=== PATIENT | female | born 1955 | race Caucasian/White ===

== ENCOUNTER 2025-06-16 09:16 | Outpatient (REF) | payer MEDICARE, SELFPAY ==
[2025-06-16 13:24] LABS: MANUAL DIFF FLAG NO
[2025-06-16 13:29] LABS: Hematocrit 41.3 % (37.0-47.0); Hemoglobin 13.3 g/dl (12.0-16.0); Imm Gran Abs Auto 0.03 X10*3/uL (0.00-0.03); Imm Gran Pct Auto 0.4 % (0.0-0.4); Lymphocytes Absolute Auto 1.6 X10*3/uL (1.2-4.9); Mean Corpuscular HGB Conc 32.2 g/dl (31.0-35.0); Mean Corpuscular Hemoglobin 28.8 pg (27.0-33.0); Mean Corpuscular Volume 89.4 fL (80.0-98.0); NRBC Abs Auto 0.000 X10*3/uL (0.0-0.012); NRBC Pct Auto 0.0 /100WBC (0.0-0.2); Platelet Count 278 X10*3/uL (160-400); Red Blood Count 4.62 X10*6/uL (4.20-5.50); White Blood Count 6.7 X10*3/uL (4.8-10.8)
--- OUTSIDE RECORDS SUMMARY | 2025-06-16 13:51 | XMS_ITS | Encounter Summary ---
Author Organization [facility] Address [address] [place] [id number] Phone Care Team Providers Care Genetic Counselor Name Role Phone Radha Carbone MD Primary Care Provider + Encounter Details Date Type Department Care Team (Late st Contact Info) Description 04/08/2020 Ancillary Orders [facility] [address] [place] [address] DanicaAdrian garcia MD [address] [place] [address] [email or web address] Pain in joints Social History Tobacco Use Types Packs/Day Years Used Date Smoking Tobacco: Every Day Cigarettes 0.5 37 Smokeless Tobacco: Never Alcohol Use Standard Drinks/Week Comments Not Currently 0 (1 standard drink = 0.6 oz pur e alcohol) Comments Unknown Sex and Gender Information Value Date Recorded Sex Assigned at Not on file Legal Sex Female 10:27 AM EDT Gender Identity Not on file Sexual Orientation Not on file documented as of this encounter Plan of Treatment Not on file documented as of this encounter Results * XR HAND 3 OR MORE VIEWS (BILATERAL) (04/08/2020 4:43 PM EDT) Anatomical Region Laterality Modality Hand Left Computed Radiogr aphy 04/08/2020 4:46 PM EDT Impressions 04/08/2020 4:49 PM EDT Mild osteoarthritic changes in the thumb, second and third fingers. No signs of inflammatory or crystalline arthropathy. POS [id number] Narrative 04/08/2020 4:49 PM EDT Bilateral hands and wrists, 4 views of both. No comparison Mild, generalized osteopenia, not specifically periarticular. No erosions, soft tissue calcifications or subluxation. Minimal joint space narrowing and marginal spurring in the first MCP and second DIP joints bilaterally. Negligible similar changes in the third right DIP joint. Procedure Note Travis Frazier MD - 04/08/2020 Bilateral hands and wrists, 4 views of both. No comparison Mild, generalized osteopenia, not specifically periarticular. No erosions, soft tissue calcifications or subluxation. Minimal joint space narrowing and marginal spurring in the first MCP andsecond DIP joints bilaterally. Negligible similar changes in the thirdright DIP joint. IMPRESSION: Mild osteoarthritic changes in the thumb, second and third fingers. Nosigns of inflammatory or crystalline arthropathy. POS [id number] us Adrian Mishra MD IMG XR UPPER EXTR EMITY Final Result documented in this encounter Visit Diagnoses Diagnosis Pain in joints Pain in joint, multiple sites Pain in joints Pain in joint, multiple sites documented in this encounter Care Teams Genetic Counselor Relationship Specialty Start Date End Date Radha Carbone MD PCP - General Internal Medicine 03/22/20 documented as of this encounter Additional Source Comments The information contained in this document represents components of the legal health record. It is not the complete legal health record.[facility]
--- OUTSIDE RECORDS SUMMARY | 2025-06-16 13:51 | XMS_ITS | Clinical Summary ---
Author Organization [facility] Address [address] [place] [id number] Phone Care Team Providers Care Instructional Resource Teacher Name Role Phone Radha Carbone MD Primary Care Provider + Allergies No known active allergies Medications acetaminophen (TYLENOL) 500 MG tablet Take 500 mg by mouth every 6 (six) hours as needed. 2 tabs tid prn Active atorvastatin (LIPITOR) 80 MG tablet Take 80 mg by mouth daily. Active cholecalciferol (VITAMIN D3) 400 unit tablet Take 1,000 Units by mouth daily. Active DULoxetine (CYMBALTA) 20 MG capsule Take 20 mg by mouth daily. Active levothyroxine (SYNTHROID, LEVOTHROID) 200 MCG tablet Take 200 mcg by mouth every morning. Active lisinopril (PRINIVIL,ZESTRI L) 10 MG tablet Take 10 mg by mouth daily. Active metFORMIN (GLUCOPHAGE) 500 MG tablet Take 500 mg by mouth 2 (two) times a day with meals. Active omeprazole (PRILOSEC) 20 MG capsule Take 20 mg by mouth daily. Active albuterol 90 mcg/actuation inhaler Inhale 2 puffs into the lungs every 6 (six) hours as needed. Active cyanocobalamin, vitamin B-12, 250 MCG tablet Take 250 mcg by mouth daily. Active Active Problems No known active problems Family History Medical History Relation Comments Arthritis Mother Relation Status Comments Mother Social History Tobacco Use Types Packs/Day Years Used Date Smoking Tobacco: Every Day Cigarettes 0.5 37 Smokeless Tobacco: Never Alcohol Use Standard Drinks/Week Comments Not Currently 0 (1 standard drink = 0.6 oz pur e alcohol) Education Answer Date Recorded Are you interested in more education? Not on armando e 10/26/2022 Are you concerned about learning? Not on file 10/26/2022 No 10/26/2022 No 10/26/2022 Digital Access Answer Date Recorded No 11/24/2022 No 11/24/2022 No 11/24/2022 Reliable internet access at home? Not on file 11/24/2022 Device with a working camera? Not on file Comments Unknown Sex and Gender Information Value Date Recorded Sex Assigned at Not on file Legal Sex Female 10:27 AM EDT Gender Identity Not on file Sexual Orientation Not on file Last Filed Vital Signs Vital Sign Reading Time Taken Comments Blood Pressure 102/60 04/08/2020 3:52 PM EDT Pulse - - Temperature - - Respiratory Rate - - Oxygen Saturation - - Inhaled Oxygen Concentration - - Weight 92.5 kg (204 lb) 04/08/2020 3:52 PM EDT Height 175.3 cm (5' 9 ) 04/08/2020 3:52 PM EDT Body Mass Index 30.13 04/08/2020 3:52 PM EDT Plan of Treatment Health Maintenance Due Date Last Done Comments Adult Td,Tdap Booster 1957 LIPID PANEL 1957 DEPRESSION SCREENING 1969 SMOKING Hx and SMOKELESS TOB ACCO SCREENING 1970 HEPATITIS C SCREENING 1975 PNEUMOCOCCAL VACCINES (50+ y ears) (1 of 2 - PCV) 1976 MAMMOGRAM 1997 COLOGUARD 2002 COLONOSCOPY 2002 COLORECTAL CANCER SCREENING 2002 FIT TEST 2002 FOBT 2002 SIGMOIDOSCOPY 2002 VIRTUAL COLONOSCOPY 2002 ZOSTER VACCINES (1 of 2) 2007 CREATININE LEVEL 04/13/2021 04/13/2020 POTASSIUM LEVEL 04/13/2021 04/13/2020 TSH LEVEL 04/13/2021 04/13/2020 OSTEOPOROSIS SCREENING INITI AL (ONE-TIME) 2022 INFLUENZA VACCINE (#1) 2025 05/01/2016 COVID-19 VACCINE ( - 2024-2 6 season) 2025 RSV VACCINE (1 - 1-dose 75+ series) 2032 HEPATITIS A VACCINES Aged Out No long er eligible based on patient's age to complete this topic HIB VACCINES Aged Out No longer eligi ble based on patient's age to complete this topic MENINGOCOCCAL VACCINES (ACWY) Aged Out No longer eligible based on patient's age to complete this topic MENINGOCOCCAL VACCINES (B) Aged Out N o longer eligible based on patient's age to complete this topic Medical Devices Not on file Procedures Procedure Name Priority Date/Time Associated Diagnosis Comments THYROID STIMULATING HORMONE (TSH) Routine 04/13/2020 1:25 PM EDT Pain in joints COMPREHENSIVE METABOLIC PANEL (CMP) Routine 04/13/2020 1:25 PM EDT Pain in joints from Last 3 Months or Most Recently Relevant to Health Maintenance Results * (ABNORMAL) Comprehensive metabolic panel (04/13/2020 1:25 PM EDT) SODIUM 140 133 - 146 mmol/L [facility] POTASSIUM 3.9 3.3 - 5.1 mmol/L [facility] CHLORIDE 104 96 - 108 mmol/L [facility] CO2 24 21 - 35 mmol/L [facility] BUN 11 6 - 19 mg/dL [facility] CREATININE 0.50 0.5 - 1.5 mg/dL [facility] GLUCOSE 116(H) 70 - 99 mg/dL [facility] ALBUMIN 4.2 3.9 - 4.8 g/dL [facility] TOTAL PROTEIN 7.0 6.5 - 8.0 g/dL [facility] CALCIUM 9.3 8.4 - 10.3 mg/dL [facility] ALKALINE PHOSPHATASE 89 39 - 117 U/L [facility] TOTAL BILIRUBIN 0.2 0.0 - 1.2 mg/dL [facility] AST 22 0 - 37 U/L [facility] ALT 18 0 - 40 U/L [facility] GLOBULIN 2.8 1 - 4.8 g/dL [facility] EGFR 104 >59 mL/min/1.7 3m2 [facility] Comment:Estimated glomerular filtration rate calculated using the CKD-EPI equation. ANION GAP 16 10 - 20 mmol/L [facility] Blood 04/13/2020 1:25 PM EDT 04/13/2020 1:32 PM EDT Adrian Mishra MD LAB BLOOD BKR ORD ERABLES Final Result [address] [id number] * TSH (04/13/2020 1:25 PM EDT) TSH 1.91 0.27 - 4.20 uIU/mL [facility] Blood 04/13/2020 1:25 PM EDT 04/13/2020 1:32 PM EDT Adrian Mishra MD LAB BLOOD BKR ORD ERABLES Final Result Performing Organization Address City/[facility]/ZIP Co de Phone Number [address] [phone] from Last 3 Months or Most Recently Relevant to Health [place] [address] [facility] [place] [id number] [facility] [id number] [facility] Care Teams Instructional Resource Teacher Relationship Specialty Start Date End Date Radha Carbone MD PCP - General Internal Medicine 03/22/20 Additional Source Comments The information contained in this document represents components of the legal health record. It is not the complete legal health record.[facility]
--- OUTSIDE RECORDS SUMMARY | 2025-06-16 13:51 | XMS_ITS | Clinical Summary ---
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 Name Role Phone Radha Carbone MD Primary Care Provider [phone] Social History Tobacco Use Types Packs/Day Years Used Date Smoking Tobacco: Never Assessed Comments Unknown Sex and Gender Information Value Date Recorded Sex Assigned at Not on file Legal Sex Female 5:31 AM EST Gender Identity Not on file Sexual Orientation Not on file Plan of Treatment Health Maintenance Due Date Last Done Comments Breast Cancer Screening 1955 Zoster Vaccines (1 of 2) 2007 Pneumococcal Vaccine: 50+ Years (2 of 2 - PCV) 09/13/2016 09/14/2015 Depression Screening 07/01/2024 COVID-19 Vaccine (1 - 2024-2 6 season) 2025 Influenza Vaccine (#1) 2025 6, 05/18/2015 DTaP,Tdap,and Td Vaccines (2 - Td or Tdap) 09/13/2025 09/14/2015 RSV Immunization Adult Patients (1 - 1-dose 75+ series) 2032 HIB Vaccines Aged Out No longer eligi ble based on patient's age to complete this topic HPV Vaccines Aged Out No longer eligi ble based on patient's age to complete this topic Hepatitis A Vaccines Aged Out No long er eligible based on patient's age to complete this topic Hepatitis B Vaccines Aged Out No long er eligible based on patient's age to complete this topic IPV Vaccines Aged Out No longer eligi ble based on patient's age to complete this topic MMR Vaccines Aged Out No longer eligi ble based on patient's age to complete this topic Meningococcal ACWY Vaccine Aged Out N o longer eligible based on patient's age to complete this topic Meningococcal B Vaccine Aged Out No l onger eligible based on patient's age to complete this topic RSV Immunization Patients Under 20 months Aged Out No longer eligible b ased on patient's age to complete this topic Varicella Vaccines Aged Out No longer eligible based on patient's age to complete this topic Care Teams Test Borer Helper Relationship Specialty Start Date End Date Radha Carbone MD [address] [place] [address] PCP - General Internal Medicine 09/24/18
[2025-06-16 13:54] LABS: Alanine Aminotransferase 23 U/L (0-31); Albumin Level 4.6 g/dL (3.5-5.0); Alkaline Phosphatase 78 U/L (39-117); Anion Gap 12 (12-20); Aspartate Amino Transferase 26 U/L (5-31); Blood Urea Nitrogen 12 mg/dL (9-16); Calcium 8.9 mg/dL (8.4-10.2); Carbon Dioxide 26 mmol/L (22-29); Chloride 106 mmol/L (96-108); Cholesterol 209 mg/dL (<200); Estimated Glomerular Filt Rate > 60; HDL Cholesterol 53 mg/dL (>40); Iron 77 mcg/dL (30-160); Magnesium 1.9 mg/dL (1.6-2.6); Percent Iron Saturation 24 % (15-50); Potassium 4.0 mmol/L (3.3-5.1); Sodium 140 mmol/L (135-145); Total Iron Binding Capacity 316 mcg/dL (228-428); Total Protein 7.2 g/dL (6.5-8.0); Triglycerides 101 mg/dL (<150); Unsaturated Iron Binding 239 ug/dL
[2025-06-16 14:13] LABS: Ferritin 36 ng/mL (10-250)
[2025-06-16 14:18] LABS: Folate 19.8 ng/mL (> or = 4.0); Vitamin B12 631 pg/mL (200-900)
[2025-06-18 13:13] LABS: SM/Ribonucleoprotein Ab <1.0 NEG AI (<1.0 NEG); Smith Protein <1.0 NEG AI (<1.0 NEG)
[2025-06-22 11:49] LABS: Anti Nuclear Antibody Screen NEGATIVE (NEGATIVE)
== END 2025-06-16 09:17 | disposition home or self-care (01) ==
LOC: HO.10HDL 09:16
PROVIDERS: PCP Internal Medicine; Visit Provider Internal Medicine
DX: E11.9 Type 2 diabetes mellitus without complications (principal); E03.9 Hypothyroidism, unspecified; R80.9 Proteinuria, unspecified; M79.7 Fibromyalgia; R20.9 Unspecified disturbances of skin sensation; E78.2 Mixed hyperlipidemia
CPT/HCPCS: 36415; 80053; 80061; 82306; 82607; 82728; 82746; 83036; 83540; 83735; 84443; 85025; 85652; 86038; 86140; 86200; 86225; 86235; 86431; 96127; 99212

== ENCOUNTER 2025-06-16 09:16 | Outpatient (AMB) | payer MEDICARE, MEDICAID, SELFPAY ==
--- NOTE | 2025-06-16 09:27 | MHC.PC.OV ---
Vital Signs 06/16/25 09:28 Height 5 ft 6 in Weight 193 lb 8 oz BMI 31.2 BP 108/74 Respiration 14 Pulse 72 Pulse Source Pulse Oximeter Temp 97.7 F Temp Source Temporal Artery Scan Pulse Oximetry (%) 99 Oxygen Delivery Method Room Air Intake Visit Reasons: ANNE/ See Comments Firebrick Layer Helper Required: Yes Firebrick Layer Helper Language: Bengali Allergies NSAIDS (Non-Steroidal Anti-Inflamma Adverse Reaction (Intermediate, Verified 06/16/25 09:27) proteinuria Medication List - Last Reconciled 06/16/25 by Radha Carbone MD atorvastatin 80 mg PO DAILY cholecalciferol (vitamin D3) 50 mcg PO DAILY cyanocobalamin (vitamin B-12) 1,000 mcg PO 2XW dextroamphetamine-amphetamine 5 mg 1 tab PO BID PRN dulaglutide (Trulicity) 3 mg subcut QWEEK duloxetine 120 mg PO QAM ferrous sulfate 325 mg PO BID folic acid 1 mg PO DAILY levothyroxine 200 mcg PO DAILY lisinopril 2.5 mg PO DAILY magnesium oxide 200 mg PO DAILY PRN metformin 500 mg PO BID montelukast 10 mg PO DAILY pantoprazole 40 mg PO BID sucralfate 1 g PO BID topiramate 25 mg PO BEDTIME trazodone 200 mg PO BEDTIME zolpidem 5 mg PO BEDTIME PRN HPI HPI Comments History of Present Illness Details The patient is a 70 year old female [facility] and for in office examination for recertification of services. Type 2 Diabetes Mellitus/Obesity: The patient reports that her Trulicity injection is no longer helping with her weight loss. Also taking metformin. She has experienced progressively worsening coldness in her feet, which started in her toes and now affects the entire foot, occurring even in the summer. She wears double socks for warmth and avoids walking barefoot to prevent injury. She follows with nephrology for proteinuria, and her last visit with Dr. Marshall two months ago showed stable kidney function. Bone Health: Patient had bone density scans done in [place] showing some evidence of osteopenia. Will confirm if patient had previous scans done at [facility]. Fibromyalgia: The patient has a history of fibromyalgia, with symptoms that worsen during the winter. She manages her pain with trigger point injections administered by a paint mixer hand, which she finds helpful. She recently underwent a PRP plasma injection for her shoulder one week prior to this visit. Scalp Lesion: The patient has had a lesion on her scalp for about five years, which was initially small. Over time, it has become larger, more irregular, darker, and flaky. Hypothyroidism: The patient is status post thyroidectomy and is on levothyroxine. [facility] Medical History (Updated 06/16/25 @ 17:42 by Radha Carbone MD) Mixed hyperlipidemia Cold feet Depression with anxiety Proteinuria WOLF (obstructive sleep apnea) Hypothyroidism Fibromyalgia Diabetes mellitus type 2, controlled Surgical History (Updated 06/16/25 @ 07:57 by Radha Carbone MD) H/O shoulder surgery History of back surgery H/O thyroidectomy History of sleeve gastrectomy H/O: hysterectomy History of colonoscopy (~02/28/21) Questionnaire PHQ-9 Over the last 2 weeks, how often have you been bothered by any of the following problems? 1. Little interest or pleasure in doing things: more than half the days 2. Feeling down, depressed, or hopeless: more than half the days 3. Trouble falling or staying asleep, or sleeping too much: more than half the days 4. Feeling tired or having little energy: more than half the days 5. Poor appetite or overeating: more than half the days 6. Feeling bad about yourself - or that you are a failure or have let yourself or your family down: several days 7. Trouble concentrating on things, such as reading the newspaper or watching television: more than half the days 8. Moving or speaking so slowly that other people could have noticed. Or the opposite - being so fidgety or restless that you have been moving around a lot more than usual: several days 9. Thoughts that you would be better off or of hurting yourself in some way: not at all Total score: 14 Source: Developed by Drs. Marky Walker, Bushra Peralta, Art Jain and colleagues, with an educational john from [employer]. Review of Systems Narrative Review of Systems - Constitutional: Reports chronically cold feet. Denies fever. - Cardiovascular: Denies chest pain. Reports coldness in her feet. - Respiratory: Denies wheezing. - Gastrointestinal: Reports history of heartburn, managed with medication. Denies current symptoms of severe acid reflux. Skin: Reports a growing scalp lesion that has become darker, irregular, and flaky, and the appearance of a new nearby lesion. - Musculoskeletal: Reports chronic pain from fibromyalgia, which is worse in the winter. - Neurological: per hpi - Psychiatric: Reports anxiety and insomnia. Physical exam (Primary Care) Vital Signs: Last Vital Signs Temp 97.7 F 06/16/25 09:28 Pulse 72 06/16/25 09:28 Resp 14 06/16/25 09:28 BP 108/74 06/16/25 09:28 Pulse Ox 99 06/16/25 09:28 Oxygen Delivery Method Room Air 06/16/25 09:28 BMI result Body Mass Index 31.2 PHQ-9: PHQ-9 Score PHQ-9: Total score 14 06/16/25 09:31 Narrative Physical Exam - Gen: NAD. - HEENT: Bilateral ear canals and tympanic membranes are clear. Oropharynx is non-erythematous. - Neck: Supple, no cervical or supraclavicular lymphadenopathy. Carotid upstrokes are normal bilaterally, without bruits. - Lungs: Clear to auscultation bilaterally, no wheezes. - Cardiovascular: Regular rate and rhythm. soft murmur across precordium - Abdomen: Soft and non-tender to palpation with normal bowel sounds. - Neurological: Monofilament testing on the feet demonstrates normal sensation in plantar aspect, slightly diminished sensation in dorsal area of both feet - Msk: Peripheral pulses are 2+ in bilateral dorsalis pedis . No pedal edema. - Skin: Examination of the scalp reveals a raised, flaky, irregular, and darkened lesion. Coding Level of Care Code Est Pt Level 5 (01183) Add On Problem Visit Only Diagnoses Diabetes mellitus type 2, controlled E11.9 Postoperative hypothyroidism E89.0 Hypothyroidism type: postoperative Proteinuria, unspecified type R80.9 Proteinuria type: unspecified Fibromyalgia M79.7 Mixed hyperlipidemia E78.2 Time Spent (min) 53 Comment chart review, document prep, care coordination, visit time Assessment & Plan Assessment & Plan (1) Diabetes mellitus type 2, controlled: Code(s): E11.9 - Type 2 diabetes mellitus without complications Category: Medical (2) Hypothyroidism: Code(s): E03.9 - Hypothyroidism, unspecified Category: Medical Qualifiers: Hypothyroidism type: postoperative Qualified Code(s): E89.0 - Postprocedural hypothyroidism (3) Proteinuria: Code(s): R80.9 - Proteinuria, unspecified Category: Medical Qualifiers: Proteinuria type: unspecified Qualified Code(s): R80.9 - Proteinuria, unspecified (4) Fibromyalgia: Code(s): M79.7 - Fibromyalgia Category: Medical (5) Mixed hyperlipidemia: Code(s): E78.2 - Mixed hyperlipidemia Category: Medical Plan Assessment and Plan 1. Type 2 Diabetes Mellitus with peripheral neuropathy - The plan is to increase the Trulicity dose to 4.5 mg weekly and monitor for any GI side effects. - A referral will be placed to Podiatry for a diabetic foot exam 2. Bone Health - Obtain bone density imaging results from [facility] if previously done - A referral to Endocrinology will be considered for management depending on results 3. Scalp Lesion - The patient has a changing lesion on her scalp that has been present for five years and is growing larger, darker, and more irregular, which is concerning. - The plan is to refer her to Dermatology for evaluation and possible biopsy. 4. Fibromyalgia and Chronic Pain - The patient's pain is managed with trigger point injections, which she finds effective. - The plan is to support continuation of this therapy, along with physical therapy and massage. - A prescription for Tylenol with codeine will also be provided for pain management since patient cannot tolerate NSAIDS and is already on SNRI. 5. Postsurgical Hypothyroidism - The patient is stable on her current thyroid hormone replacement therapy, with well-controlled lab values. - Plan is to continue current medication and monitor TSH levels with routine lab work. 6. Hyperlipidemia - continue statin - Plan is to check a lipid panel and LFTs with her other labs. 7. Proteinuria - The patient's condition is well-managed on lisinopril, and she is followed by nephrology. - Plan is to continue the current medication regimen. 8. Health Maintenance and Wellness - A comprehensive set of labs, including vitamin levels and a rheumatology panel, will be ordered. - The patient is encouraged to start water aerobics for general fitness and pain management. - We will follow up in three months. Plan - Increase Trulicity to 4.5 mg weekly for management of type 2 diabetes. - Refer to Dermatology for evaluation of a suspicious, growing scalp lesion. - Refer to Podiatry for a comprehensive diabetic foot exam - Order comprehensive lab work including a lipid panel, liver function tests, vitamin levels (D, B12), iron studies, and a rheumatology panel. - Obtain prior bone density scan reports Patient Instructions - We are increasing your Trulicity injection dose to 4.5 mg once a week. Please let us know if you experience any new nausea or stomach upset. - Please call [facility] to make an appointment to have the spot on your head checked. - Please go to the lab to get your blood tests done - Starting water aerobics is a great idea and can be very helpful for your joints and pain. Orders: Orders C Reactive Protein Today E03.9 - Hypothyroidism, unspecified, E11.9 - Type 2 diabetes mellitus without complications, M79.7 - Fibromyalgia, R20.9 - Unspecified disturbances of skin sensation, R80.9 - Proteinuria, unspecified Magnesium Today E03.9 - Hypothyroidism, unspecified, E11.9 - Type 2 diabetes mellitus without complications, M79.7 - Fibromyalgia, R20.9 - Unspecified disturbances of skin sensation, R80.9 - Proteinuria, unspecified Ferritin Today E03.9 - Hypothyroidism, unspecified, E11.9 - Type 2 diabetes mellitus without complications, M79.7 - Fibromyalgia, R20.9 - Unspecified disturbances of skin sensation, R80.9 - Proteinuria, unspecified Erythrocyte Sedimentation Rate Today E03.9 - Hypothyroidism, unspecified, E11.9 - Type 2 diabetes mellitus without complications, M79.7 - Fibromyalgia, R20.9 - Unspecified disturbances of skin sensation, R80.9 - Proteinuria, unspecified Anti DNA DS Antibody Today E03.9 - Hypothyroidism, unspecified, E11.9 - Type 2 diabetes mellitus without complications, M79.7 - Fibromyalgia, R20.9 - Unspecified disturbances of skin sensation, R80.9 - Proteinuria, unspecified Rheumatoid Factor Today E03.9 - Hypothyroidism, unspecified, E11.9 - Type 2 diabetes mellitus without complications, M79.7 - Fibromyalgia, R20.9 - Unspecified disturbances of skin sensation, R80.9 - Proteinuria, unspecified Lipid Panel Today E11.9 - Type 2 diabetes mellitus without complications Complete Blood Count Auto Diff Today E03.9 - Hypothyroidism, unspecified, E11.9 - Type 2 diabetes mellitus without complications, M79.7 - Fibromyalgia, R20.9 - Unspecified disturbances of skin sensation, R80.9 - Proteinuria, unspecified Comprehensive Met. Panel Today E03.9 - Hypothyroidism, unspecified, E11.9 - Type 2 diabetes mellitus without complications, M79.7 - Fibromyalgia, R20.9 - Unspecified disturbances of skin sensation, R80.9 - Proteinuria, unspecified IRON PROFILE Today E03.9 - Hypothyroidism, unspecified, E11.9 - Type 2 diabetes mellitus without complications, M79.7 - Fibromyalgia, R20.9 - Unspecified disturbances of skin sensation, R80.9 - Proteinuria, unspecified Hemoglobin A1c Today E03.9 - Hypothyroidism, unspecified, E11.9 - Type 2 diabetes mellitus without complications, M79.7 - Fibromyalgia, R20.9 - Unspecified disturbances of skin sensation, R80.9 - Proteinuria, unspecified TSH reflex Free T4 Today E03.9 - Hypothyroidism, unspecified, E11.9 - Type 2 diabetes mellitus without complications, M79.7 - Fibromyalgia, R20.9 - Unspecified disturbances of skin sensation, R80.9 - Proteinuria, unspecified Vitamin B12 Today E03.9 - Hypothyroidism, unspecified, E11.9 - Type 2 diabetes mellitus without complications, M79.7 - Fibromyalgia, R20.9 - Unspecified disturbances of skin sensation, R80.9 - Proteinuria, unspecified Vitamin D 25-OH Total Today E03.9 - Hypothyroidism, unspecified, E11.9 - Type 2 diabetes mellitus without complications, M79.7 - Fibromyalgia, R20.9 - Unspecified disturbances of skin sensation, R80.9 - Proteinuria, unspecified Folate Today E03.9 - Hypothyroidism, unspecified, E11.9 - Type 2 diabetes mellitus without complications, M79.7 - Fibromyalgia, R20.9 - Unspecified disturbances of skin sensation, R80.9 - Proteinuria, unspecified MELIDA Reflex Titer and Pattern Today E03.9 - Hypothyroidism, unspecified, E11.9 - Type 2 diabetes mellitus without complications, M79.7 - Fibromyalgia, R20.9 - Unspecified disturbances of skin sensation, R80.9 - Proteinuria, unspecified Sm Sm/SOFA BACK UPHOLSTERER Antibodies Today E03.9 - Hypothyroidism, unspecified, E11.9 - Type 2 diabetes mellitus without complications, M79.7 - Fibromyalgia, R20.9 - Unspecified disturbances of skin sensation, R80.9 - Proteinuria, unspecified Cyclic Citrullinated Peptide Today E03.9 - Hypothyroidism, unspecified, E11.9 - Type 2 diabetes mellitus without complications, M79.7 - Fibromyalgia, R20.9 - Unspecified disturbances of skin sensation, R80.9 - Proteinuria, unspecified Referrals Podiatry Referral E11.9 - Type 2 diabetes mellitus without complications, R20.9 - Unspecified disturbances of skin sensation Medications: New acetaminophen-codeine 300-30 mg 1 tab PO Q6H 28 tabs 3RF 7 days M79.7 - Fibromyalgia atorvastatin 80 mg PO DAILY 90 tabs 3RF cholecalciferol (vitamin D3) 50 mcg PO DAILY 90 caps 3RF ferrous sulfate 325 mg PO BID 180 tabs 3RF abdominal pain folic acid 1 mg PO DAILY 90 tabs 3RF lisinopril 2.5 mg PO DAILY 90 tabs 3RF montelukast 10 mg PO DAILY 90 tabs 3RF allergies pantoprazole 40 mg PO BID 180 tabs 3RF 90 days dulaglutide (Trulicity) dose change 4.5 mg (0.5 mL) subcut QWEEK 2 mL 6RF cyanocobalamin (vitamin B-12) 1,000 mcg PO 2XW 24 tabs 3RF duloxetine 120 mg (2 x 60 mg) PO QAM 180 caps 3RF levothyroxine 200 mcg PO DAILY 90 tabs 3RF metformin 500 mg PO BID 180 tabs 3RF
[2025-06-16 09:28] VITALS: BP 108/74; PULSE 72; RESP 14; TEMP 36.5; O2SAT 99; BMI 31.2
== END 2025-06-16 10:18 | disposition home or self-care (01) ==
LOC: HO.HMCHD 09:17
PROVIDERS: PCP Internal Medicine; Visit Provider Internal Medicine
DX: E11.9 Type 2 diabetes mellitus without complications (principal); E89.0 Postprocedural hypothyroidism; R80.9 Proteinuria, unspecified; M79.7 Fibromyalgia; E78.2 Mixed hyperlipidemia